=== PATIENT | female | born 1980 | race Caucasian/White ===

== ENCOUNTER 2016-11-13 11:27 | Emergency (ER) | payer OTHER ==
[~2016-11-13] VITALS: Ht 157.5 cm; Wt 84.1 kg
[~2016-11-13 11:27] MED LIST: ABIL10TA9 PO; ABIL1TAB11 PO; ABIL20TA5 PO; AMBI10TA PO; AMBI5TAB PO; ATIV1TAB7 PO; BACT800T5 PO; CIPR-249 PO; LAMI1TAB8 PO; LAMI25TA PO; METF500T13 PO; MIRA0.12 PO; NUVI250T5 PO; PERC5TAB12 PO; SERO1TAB3 PO; TRAZ50TA11 PO; ZOLO100T PO
[2016-11-13 11:28] VITALS: BP 152/103
--- NOTE | 2016-11-14 08:19 | ECGEPIP ---
Stationary ECG Study 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
== END 2016-11-13 13:05 | disposition home or self-care (01) ==
LOC: M ED 11:27
DX: R53.83 Other fatigue (principal); E11.9 Type 2 diabetes mellitus without complications; F41.9 Anxiety disorder, unspecified; G43.909 Migraine, unspecified, not intractable, without status migrainosus; Z87.442 Personal history of urinary calculi; F17.200 Nicotine dependence, unspecified, uncomplicated; Z79.899 Other long term (current) drug therapy; Z88.5 Allergy status to narcotic agent; Z88.0 Allergy status to penicillin; Z91.89 Other specified personal risk factors, not elsewhere classified

== ENCOUNTER → 2017-02-01 | Outpatient (CLI) | payer OTHER ==
--- NOTE | 2017-02-02 02:07 | REP ---
Clinical: Pain along the plantar surface and first metatarsal bone. Technique: AP, lateral, bilateral oblique views right foot . Findings: The osseous structures and joint spaces are intact and normal. There is no evidence for acute fracture or dislocation. Surrounding soft tissues are unremarkable. No subcutaneous emphysema or radiodense foreign body. Impression: Normal examination . No acute fracture or dislocation. Signed by Chucky Salcedo MD 02/01/2017 10:58 P
== END ==
LOC: M WUC 10:57
PROVIDERS: ATTEND Physician Assistant
DX: M79.671 Pain in right foot (principal)

== ENCOUNTER 2018-03-17 06:41 | Emergency (ER) | payer OTHER ==
[~2018-03-17] VITALS: Ht 152.4 cm; Wt 86.4 kg
[~2018-03-17 06:41] MED LIST changes: +TRAZ-160 PO; -TRAZ50TA11 PO
[2018-03-17] MEDS ORDERED: LITH300C PO (06:48)
[2018-03-17] MEDS ORDERED: CLON0.5T8 PO (06:48)
[2018-03-17] MEDS ORDERED: EXCETAB80 PO (06:48)
[2018-03-17] MEDS ORDERED: SERT-138 PO (06:50)
[2018-03-17] MEDS ORDERED: ZOLP6.25 PO (06:50)
[2018-03-17] MEDS ORDERED: LATU40TA PO (06:50)
[2018-03-17] MEDS ORDERED: BUSP10TA PO (06:50)
[2018-03-17] MEDS ORDERED: NS 1,000 ML IV ONE (07:15)
--- NOTE | 2018-03-17 07:24 | REPVR ---
EXAM: CT Head Without Contrast EXAM DATE/TIME: 03/17/2018 7:02 AM CLINICAL HISTORY: 37 years old, female; Pain; Headache; Migraine; Aura effect not specified; Additional info: Severe migraine; Feels different TECHNIQUE: Axial computed tomography images of the head/brain without contrast. All CT scans at this facility use at least one of these dose optimization techniques: automated exposure control; mA and/or kV adjustment per patient size (includes targeted exams where dose is matched to clinical indication); or iterative reconstruction. COMPARISON: No relevant prior studies available. FINDINGS: Brain: Normal. No hemorrhage. No significant white matter disease. No edema. Ventricles: Normal. No ventriculomegaly. Bones/joints: Unremarkable. No acute fracture. Sinuses: Visualized sinuses are unremarkable. No acute sinusitis. Mastoid air cells: Visualized mastoid air cells are unremarkable. No mastoid effusion. Soft tissues: Unremarkable. IMPRESSION: No acute intracranial abnormality. Electronically signed by: Jasen Chapman On 03/17/2018 07:24:34 AM
[2018-03-17] MEDS ORDERED: diphenhydrAMINE INJ 50MG/ML VIAL (J1200) IV STA (07:29)
[2018-03-17] MEDS ORDERED: ONDANSETRON 4MG/2ML VIAL (J2405) IV ONE (07:30)
[2018-03-17] MEDS ORDERED: KETOROLAC 30 MG/ML VIAL (J1885) IV ONE (07:30)
[2018-03-17] MEDS ORDERED: SUMA25TA3 PO (09:16)
[2018-03-17 09:34] VITALS: BP 112/70
== END 2018-03-17 09:36 | disposition home or self-care (01) ==
LOC: M ED 06:41
DX: G43.909 Migraine, unspecified, not intractable, without status migrainosus (principal); F31.9 Bipolar disorder, unspecified; F41.9 Anxiety disorder, unspecified; F43.10 Post-traumatic stress disorder, unspecified; Z79.899 Other long term (current) drug therapy; Z88.0 Allergy status to penicillin; Z88.5 Allergy status to narcotic agent; Z91.048 Other nonmedicinal substance allergy status
CPT/HCPCS: 70450; 96361; 96374; 96375; 99284; J1200; J1885; J2405

== ENCOUNTER → 2018-03-29 | Outpatient (REF) | payer OTHER ==
[~2018-03-29] MED LIST changes: +BUSP10TA PO; +CLON0.5T8 PO; +EXCETAB80 PO; +LATU40TA PO; +LITH300C PO; +SERT-138 PO; +SUMA25TA3 PO; +ZOLP6.25 PO
[2018-03-29 14:54] LABS: INFLUENZA A AMPLIFICATION NEGATIVE (NEGATIVE); INFLUENZA B AMPLIFICATION NEGATIVE (NEGATIVE)
== END ==
LOC: M LAB REF 13:59
PROVIDERS: ATTEND Physician Assistant Medical
DX: J11.1 Influenza due to unidentified influenza virus with other respiratory manifestations (principal)

== ENCOUNTER 2018-04-12 11:21 | Emergency (ER) | payer OTHER ==
[~2018-04-12] VITALS: Ht 154.9 cm; Wt 90.9 kg
--- NOTE | 2018-04-12 11:56 | REP ---
Clinical: Right shoulder pain. Technique: Internal rotation, external rotation, and Y view of the right shoulder. Findings: Mild cortical irregularity at the acromioclavicular joint noted. The glenohumeral joint is intact and normal. The subacromial space is normal. No periarticular calcifications or loose bodies are identified. The surrounding soft tissues are normal. 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 Electronically Signed by Chucky Salcedo MD 04/12/2018 11:47 A
[2018-04-12] MEDS ORDERED: PRED20TA PO (14:05)
[2018-04-12] MEDS ORDERED: ZITHTAB PO (14:05)
[2018-04-12] MEDS ORDERED: SKEL800T97 PO (14:05)
[2018-04-12 14:09] VITALS: BP 130/81
== END 2018-04-12 14:17 | disposition home or self-care (01) ==
LOC: M ED 11:21
DX: S46.811A Strain of other muscles, fascia and tendons at shoulder and upper arm level, right arm, initial encounter (principal); X50.3XXA Overexertion from repetitive movements, initial encounter; Y92.89 Other specified places as the place of occurrence of the external cause; H66.91 Otitis media, unspecified, right ear; G43.909 Migraine, unspecified, not intractable, without status migrainosus; F41.1 Generalized anxiety disorder; F43.10 Post-traumatic stress disorder, unspecified; F31.9 Bipolar disorder, unspecified; Z87.442 Personal history of urinary calculi; Z88.5 Allergy status to narcotic agent; Z88.0 Allergy status to penicillin; Z91.048 Other nonmedicinal substance allergy status; Z79.899 Other long term (current) drug therapy

== ENCOUNTER 2018-12-09 15:48 | Emergency (ER) | payer OTHER ==
[~2018-12-09] VITALS: Ht 154.9 cm; Wt 90.6 kg
[~2018-12-09 15:48] MED LIST changes: +PRED20TA PO; +SKEL800T97 PO; -TRAZ-160 PO; +TRAZ-252 PO; +ZITHTAB PO
[2018-12-09] MEDS ORDERED: PROV100T25 PO (16:43)
[2018-12-09] MEDS ORDERED: KETO10TAB PO (17:05)
[2018-12-09] MEDS ORDERED: KETOROLAC TROMETHAMINE 10 MG TAB PO ONE (17:15)
[2018-12-09 17:31] VITALS: BP 130/90
--- NOTE | 2018-12-09 20:31 | REP ---
HISTORY: Pain after trauma. COMPARISON: None. FINDINGS: The compartments are symmetric and relatively well maintained. There is no acute fracture or destructive osseous lesion. Electronically Signed by Roge Garcia DO 12/12/2018 02:51 P
== END 2018-12-09 17:48 | disposition home or self-care (01) ==
LOC: M ED 15:48
DX: S83.91XA Sprain of unspecified site of right knee, initial encounter (principal); W10.1XXA Fall (on)(from) sidewalk curb, initial encounter; Y92.480 Sidewalk as the place of occurrence of the external cause; Y99.8 Other external cause status; Z88.0 Allergy status to penicillin; Z88.5 Allergy status to narcotic agent; Z91.048 Other nonmedicinal substance allergy status; Z79.899 Other long term (current) drug therapy; G43.909 Migraine, unspecified, not intractable, without status migrainosus; K44.9 Diaphragmatic hernia without obstruction or gangrene; Z87.442 Personal history of urinary calculi; Z87.440 Personal history of urinary (tract) infections

== ENCOUNTER → 2020-07-12 | Outpatient (CLI) | payer OTHER ==
[~2020-07-12] MED LIST changes: +CLON0.5T2 PO; -CLON0.5T8 PO; +KETO10TAB PO; +PROV100T25 PO; -ZOLP6.25 PO; +ZOLP6.2517 PO
--- NOTE | 2020-07-12 10:00 | REP ---
INDICATION: DISORDERS OF TMJ. Bilateral TMJ area pain, right greater than left. COMPARISON: Comparison head CT images 15 February 2018.. TECHNIQUE: Axial, coronal, and sagittal imaging planes utilized. T1 and T2 weighted scans are included. Step wedge sin a opening views are acquired. Sagittal images are acquired in open and closed position. FINDINGS: Mandibular condyles and temporal fossa are unremarkable bilaterally. There is minimal joint fluid in the temporomandibular joint on the right. No large effusion is seen on either side. Opening translation is normal bilaterally. The TMJ meniscus appears normally situated at rest and with opening on both sides. No evidence of dislocation seen. IMPRESSION: Small amount of joint fluid visible right TMJ. No other temporomandibular joint abnormality noted. <Electronically signed by Hernán Gotti > 07/12/20 [id number]
== END ==
LOC: M RAD 07:41
PROVIDERS: ATTEND Otolaryngology
DX: M26.69 Other specified disorders of temporomandibular joint (principal); M25.48 Effusion, other site

== ENCOUNTER → 2020-08-23 | Outpatient (CLI) | payer OTHER ==
[~2020-08-23] MED LIST changes: -LATU40TA PO; +LATU40TA2 PO
[2020-08-23 11:40] LABS: BASO % 0.4 % (0.0-1.0); EOS # 0.2 10^3/uL (0.0-0.5); EOS % 1.8 % (0.0-3.0); HEMOGLOBIN 13.8 g/dl (12.0-15.5); LYMPH # 2.9 10^3/uL (1.5-5.0); LYMPH % 28.3 % (24.0-44.0); MEAN CORPUSCULAR HEMOGLOBIN 30.3 pg (27.0-33.0); MEAN CORPUSCULAR HGB CONC 32.1 g/dl (32.0-36.5); MEAN CORPUSCULAR VOLUME 94.3 fl (80.0-96.0); MONO # 0.5 10^3/uL (0.0-0.8); NEUTROPHILS # 6.5 10^3/uL (1.5-8.5); NEUTROPHILS % 64.3 % (36.0-66.0); PLATELET COUNT, AUTOMATED 377 10^3/uL (150-450); RED BLOOD COUNT 4.56 10^6/uL (4.00-5.40); WHITE BLOOD COUNT 10.1 10^3/uL (4.0-10.0)
[2020-08-23 12:37] LABS: ALT/SGPT 25 U/L (12-78); BILIRUBIN,TOTAL 0.4 MG/DL (0.2-1.0); BLOOD UREA NITROGEN 10 MG/DL (7-18); CALCIUM LEVEL 8.5 MG/DL (8.5-10.1); CARBON DIOXIDE LEVEL 27 MEQ/L (21-32); CHLORIDE LEVEL 107 MEQ/L (98-107); CHOLESTEROL LEVEL 194 MG/DL (<200); CHOLESTEROL RISK RATIO 2.852 (<5); CREATININE FOR GFR 0.63 MG/DL (0.55-1.30); FREE T4 0.68 NG/DL (0.76-1.46); GLOMERULAR FILTRATION RATE > 60.0 (>58); GLUCOSE, FASTING 108 MG/DL (70-100); HDL CHOLESTEROL 68 MG/DL (>40); LDL CHOLESTEROL 109 MG/DL (<100); LITHIUM LEVEL 0.51 MEQ/L (0.60-1.20); NON-HDL-C 126 MG/DL; POTASSIUM SERUM 4.6 MEQ/L (3.5-5.1); SODIUM LEVEL 138 MEQ/L (136-145); THYROID STIMULATING HORMONE 0.708 uIU/ML (0.358-3.740); TOTAL PROTEIN 7.6 GM/DL (6.4-8.2); TRIGLYCERIDES LEVEL 87 MG/DL (<150)
[2020-08-23 12:56] LABS: HEMOGLOBIN A1c 5.4 %
[2020-08-23 13:06] LABS: TOTAL 25(OH) VITAMIN D 20.6 NG/ML (30.0-100.0)
[2020-08-24 18:10] LABS: Lyme Disease IgG/IgM Antibodie <0.91 ISR (0.00-0.90); Lyme Disease IgM Ab Quantitati <0.80 index (0.00-0.79)
== END ==
LOC: M LAB 10:18
PROVIDERS: ATTEND Physician Assistant
DX: E66.9 Obesity, unspecified (principal)

== ENCOUNTER → 2020-09-06 | Outpatient (CLI) | payer OTHER ==
[~2020-09-06] MED LIST changes: +LATU40TA PO; -LATU40TA2 PO
--- NOTE | 2020-09-06 16:07 | REP ---
INDICATION: N64.4 MASTODYNIA. Patient reports bilateral palpable lumps. COMPARISON: Mammography no comparison breast imaging. TECHNIQUE: Bilateral CC and MLO) view(s) were taken. Skin markers are affixed to the skin at the sites of the palpable lumps bilaterally. Routine views are augmented by magnified focal spot-compression images bilaterally in the area the palpable lump. 3D tomography is performed. Implant included and implant displaced views are included. Targeted bilateral breast sonography is carried out. FINDINGS: Scattered fibroglandular elements are seen bilaterally. No suspicious or dominant density is seen. No microcalcification or architectural distortion is seen. No worrisome skin change is appreciated. Visualized implant margins are smooth bilaterally. 3-D tomosynthesis shows no additional finding. Targeted bilateral breast sonography scanning is performed in the area the palpable lumps, 12 o'clock in the right breast, 3 and 9 o'clock in the left breast. Mildly heterogeneous fibroglandular background echotexture is seen bilaterally. No cyst, mass, or acoustic shadowing is seen by ultrasound. IMPRESSION: BIRADS/ACR category 2 benign mammographic and sonographic findings.. This patient's Tyrer-Cuzick lifetime breast cancer risk assessment score is 18.3%. This mammogram was interpreted with the aid of an FDA-approved computer-aided detection system. The patient states she had a clinical breast exam in August of 2020. The patient letter being requested is M2. RECOMMENDATION: Repeat screening mammography recommended 1 year (for women over 40). Clinical follow-up. <Electronically signed by Hernán Gotti > 09/06/20 [id number]
== END ==
LOC: M WHC 14:18
PROVIDERS: ATTEND Physician Assistant
DX: N64.4 Mastodynia (principal); Z98.82 Breast implant status
CPT/HCPCS: 76642; 77066; G0279

== ENCOUNTER → 2020-12-03 | Outpatient (REF) | payer OTHER ==
[2020-12-03 22:20] LABS: GC DNA AMPLIFICATION NEGATIVE (NEGATIVE)
== END ==
LOC: M LAB REF 16:46
PROVIDERS: ATTEND Obstetrics & Gynecology
DX: Z11.3 Encounter for screening for infections with a predominantly sexual mode of transmission (principal)
CPT/HCPCS: 87491; 87591; G0463

== ENCOUNTER → 2020-12-24 | Outpatient (CLI) | payer OTHER ==
[2020-12-24 15:05] LABS: ESTRADIOL 79.8 PG/ML; FOLLICLE STIMULATING HORMONE 6.6 mIU/mL; HEPATITIS B SURFACE ANTIGEN NEGATIVE (NEGATIVE); HEPATITIS C VIRUS ABY INDEX 0.1 INDEX (<0.8); HIV 1&2 SCREEN CENTAUR NEGATIVE (NEGATIVE); LUTEINIZING HORMONE 4.4 mIU/mL
[2020-12-24 15:50] LABS: GC DNA AMPLIFICATION NEGATIVE (NEGATIVE)
[2020-12-25 12:08] LABS: TESTOSTERONE FREE (DIRECT) 1.7 pg/mL (0.0-4.2)
== END ==
LOC: M PLALAB 09:50
PROVIDERS: ATTEND Obstetrics & Gynecology
DX: N95.1 Menopausal and female climacteric states (principal); Z11.3 Encounter for screening for infections with a predominantly sexual mode of transmission

== ENCOUNTER → 2021-01-07 | Outpatient (CLI) | payer OTHER ==
[2021-01-07 18:13] LABS: C REACTIVE PROTEIN QUANTITATIV < 0.30 MG/DL (0.00-0.30); RHEUMATOID FACTOR QUANT < 10.0 IU/ML (<15.0); URIC ACID 4.1 MG/DL (2.6-6.0)
== END ==
LOC: M PLALAB 13:22
PROVIDERS: ATTEND Physician Assistant
DX: M25.50 Pain in unspecified joint (principal)

== ENCOUNTER → 2021-01-29 | Outpatient (REF) | payer OTHER | LOC: M SFHCWAGY 18:46 | PROVIDERS: ATTEND Obstetrics & Gynecology | DX: N90.7 Vulvar cyst (principal) ==

== ENCOUNTER → 2021-10-27 | Outpatient (CLI) | payer OTHER ==
[~2021-10-27] MED LIST changes: -LATU40TA PO; +LATU40TA2 PO
[2021-10-28 08:26] LABS: BASO % 0.2 % (0.0-1.0); EOS # 0.1 10^3/uL (0.0-0.5); HEMATOCRIT 39.9 % (36.0-47.0); HEMOGLOBIN 12.5 g/dl (12.0-15.5); LYMPH # 2.3 10^3/uL (1.5-5.0); LYMPH % 28.1 % (24.0-44.0); MEAN CORPUSCULAR HEMOGLOBIN 30.6 pg (27.0-33.0); MEAN CORPUSCULAR HGB CONC 31.3 g/dl (32.0-36.5); MEAN CORPUSCULAR VOLUME 97.8 fl (80.0-96.0); MONO # 0.4 10^3/uL (0.0-0.8); NEUTROPHILS # 5.4 10^3/uL (1.5-8.5); NEUTROPHILS % 65.3 % (36.0-66.0); PLATELET COUNT, AUTOMATED 375 10^3/uL (150-450); RED BLOOD COUNT 4.08 10^6/uL (4.00-5.40); WHITE BLOOD COUNT 8.3 10^3/uL (4.0-10.0)
[2021-10-28 08:41] LABS: ERYTHROCYTE SEDIMENTATION RATE 9 mm/hr (0-20)
[2021-10-28 09:00] LABS: ALBUMIN 3.9 GM/DL (3.2-5.2); ALT/SGPT 19 U/L (12-78); BILIRUBIN,TOTAL 0.3 MG/DL (0.2-1.0); BLOOD UREA NITROGEN 9 MG/DL (7-18); C REACTIVE PROTEIN QUANTITATIV 0.33 MG/DL (0.00-0.30); CALCIUM LEVEL 9.2 MG/DL (8.5-10.1); CARBON DIOXIDE LEVEL 25 MEQ/L (21-32); CHLORIDE LEVEL 106 MEQ/L (98-107); CREATININE FOR GFR 0.62 MG/DL (0.55-1.30); GLOMERULAR FILTRATION RATE > 60.0 (>58); GLUCOSE, FASTING 101 MG/DL (70-100); POTASSIUM SERUM 4.1 MEQ/L (3.5-5.1); SODIUM LEVEL 136 MEQ/L (136-145); TOTAL PROTEIN 7.2 GM/DL (6.4-8.2)
== END ==
LOC: M PLALAB 14:50
PROVIDERS: ATTEND Nurse Practitioner Adult Health
DX: R50.9 Fever, unspecified (principal)

== ENCOUNTER → 2021-11-03 | Outpatient (REF) | payer OTHER ==
[2021-11-03 14:00] LABS: APPEARANCE, URINE MANUAL HAZY (CLEAR); BILIRUBIN, URINE MANUAL NEGATIVE (NEGATIVE); COLOR, URINE MANUAL YELLOW (YELLOW); GLUCOSE, URINE (UA) MANUAL NEGATIVE (NEGATIVE); KETONE, URINE MANUAL NEGATIVE (NEGATIVE); PROTEIN, URINE MANUAL 1+ mg/dL (NEGATIVE); SPECIFIC GRAVITY,URINE MANUAL 1.023 (1.002-1.035); UROBILINOGEN, URINE MANUAL NORMAL (NORMAL)
[2021-11-03 14:01] LABS: BLOOD URINE MANUAL NEGATIVE (NEGATIVE); LEUKOCYTE ESTERASE, URINE MAN TRACE (NEGATIVE); NITRITE, URINE MANUAL NEGATIVE (NEGATIVE)
[2021-11-03 14:24] LABS: RBC, URINE 0-1 /hpf (0-3)
[2021-11-03 14:25] LABS: BACTERIA, URINE SMALL AMOUNT; HYALINE CAST, URINE NONE SEEN /lpf (0-1); SQUAMOUS EPITHELIAL CELL URINE MOD AMOUNT /hpf (SMALL AMT)
== END ==
LOC: M SMT 13:05
PROVIDERS: ATTEND Physician Assistant
DX: N12 Tubulo-interstitial nephritis, not specified as acute or chronic (principal)
CPT/HCPCS: 81000; 87086; G0463

== ENCOUNTER → 2021-11-06 | Outpatient (CLI) | payer OTHER | LOC: M WHC 12:39 | PROVIDERS: ATTEND Physician Assistant | DX: N12 Tubulo-interstitial nephritis, not specified as acute or chronic (principal); R93.89 Abnormal findings on diagnostic imaging of other specified body structures ==

== ENCOUNTER → 2021-12-01 | Outpatient (CLI) | payer OTHER ==
[2021-12-01 18:46] LABS: FREE T4 0.61 NG/DL (0.76-1.46); THYROID STIMULATING HORMONE 1.31 uIU/ML (0.358-3.740)
[2021-12-01 19:23] LABS: LUTEINIZING HORMONE 5.8 mIU/mL
[2021-12-01 19:24] LABS: FOLLICLE STIMULATING HORMONE 6.4 mIU/mL
== END ==
LOC: M PLALAB 13:58
PROVIDERS: ATTEND Nurse Practitioner Adult Health
DX: N89.8 Other specified noninflammatory disorders of vagina (principal)

== ENCOUNTER → 2021-12-25 | Outpatient (CLI) | payer OTHER | LOC: M PLARAD 12:27 | PROVIDERS: ATTEND Nurse Practitioner Adult Health | DX: R51.9 Headache, unspecified (principal) ==

== ENCOUNTER → 2022-09-14 | Outpatient (CLI) | payer OTHER ==
[2022-09-14 12:37] LABS: BASO % 0.4 % (0.0-1.0); EOS # 0.1 10^3/uL (0.0-0.5); EOS % 1.2 % (0.0-3.0); HEMATOCRIT 40.5 % (36.0-47.0); HEMOGLOBIN 13.2 g/dl (12.0-15.5); LYMPH # 2.3 10^3/uL (1.5-5.0); LYMPH % 29.6 % (24.0-44.0); MEAN CORPUSCULAR HEMOGLOBIN 30.6 pg (27.0-33.0); MEAN CORPUSCULAR HGB CONC 32.6 g/dl (32.0-36.5); MEAN CORPUSCULAR VOLUME 93.8 fl (80.0-96.0); MONO # 0.4 10^3/uL (0.0-0.8); MONO % 5.2 % (2.0-8.0); NEUTROPHILS # 4.9 10^3/uL (1.5-8.5); NEUTROPHILS % 63.3 % (36.0-66.0); PLATELET COUNT, AUTOMATED 406 10^3/uL (150-450); RED BLOOD COUNT 4.32 10^6/uL (4.00-5.40); WHITE BLOOD COUNT 7.7 10^3/uL (4.0-10.0)
[2022-09-14 12:58] LABS: ALKALINE PHOSPHATASE 72 U/L (46-116); ALT/SGPT 25 U/L (7.0-40); AST/SGOT 10 U/L (<34); BILIRUBIN,TOTAL 0.3 MG/DL (0.3-1.2); BLOOD UREA NITROGEN 8 MG/DL (9-23); CALCIUM LEVEL 9.2 MG/DL (8.5-10.1); CARBON DIOXIDE LEVEL 25 MMOL/L (20-31); CHLORIDE LEVEL 108 MMOL/L (98-107); CHOLESTEROL LEVEL 165 MG/DL (<200); CHOLESTEROL RISK RATIO 2.65 (<5); CREATININE FOR GFR 0.54 MG/DL (0.55-1.30); GLOMERULAR FILTRATION RATE > 60.0 (>58); GLUCOSE, FASTING 119 MG/DL (60-100); HDL CHOLESTEROL 62.2 MG/DL (>40); NON-HDL-C 102.8 MG/DL; POTASSIUM SERUM 4.6 MMOL/L (3.5-5.1); SODIUM LEVEL 141 MMOL/L (136-145); TOTAL PROTEIN 7.2 G/DL (5.7-8.2); TRIGLYCERIDES LEVEL 89 MG/DL (<150)
[2022-09-14 13:00] LABS: FREE T4 0.89 NG/DL (0.89-1.76); THYROID STIMULATING HORMONE 1.244 uIU/ML (0.55-4.78); TOTAL 25(OH) VITAMIN D 22.5 NG/ML (20.0-100.0)
== END ==
LOC: M LAB 11:02
PROVIDERS: ATTEND Family Medicine
DX: E55.9 Vitamin D deficiency, unspecified (principal); K21.9 Gastro-esophageal reflux disease without esophagitis; E66.01 Morbid (severe) obesity due to excess calories

== ENCOUNTER 2023-10-07 16:52 | Emergency (ER) | payer OTHER ==
[~2023-10-07] VITALS: Ht 154.9 cm; Wt 102.2 kg
[~2023-10-07 16:52] MED LIST changes: -ZOLP6.2517 PO; +ZOLP6.2526 PO
[2023-10-07 16:53] VITALS: TEMP 98
[2023-10-07] MEDS: CHLORTHALIDONE 25 MG TAB PO ONE (17:54)
[2023-10-07 18:25] LABS: BASO % 0.1 % (0.0-1.0); HEMATOCRIT 42.3 % (36.0-47.0); HEMOGLOBIN 14.1 g/dl (12.0-15.5); LYMPH # 2.6 10^3/uL (1.5-5.0); LYMPH % 12.5 % (24.0-44.0); MEAN CORPUSCULAR HEMOGLOBIN 30.9 pg (27.0-33.0); MEAN CORPUSCULAR HGB CONC 33.3 g/dl (32.0-36.5); MEAN CORPUSCULAR VOLUME 92.6 fl (80.0-96.0); MONO # 1.1 10^3/uL (0.0-0.8); MONO % 5.1 % (2.0-8.0); NEUTROPHILS # 17.2 10^3/uL (1.5-8.5); NEUTROPHILS % 81.7 % (36.0-66.0); PLATELET COUNT, AUTOMATED 460 10^3/uL (150-450); RED BLOOD COUNT 4.57 10^6/uL (4.00-5.40); WHITE BLOOD COUNT 21.1 10^3/uL (4.0-10.0)
[2023-10-07 18:50] LABS: OSMOLALITY SERUM 298 MOSM/KG (275-295)
[2023-10-07 18:56] LABS: HCG, SERUM QUALITATIVE NEGATIVE (NEGATIVE)
[2023-10-07 18:57] LABS: ALBUMIN 4.1 G/DL (3.2-5.2); ALKALINE PHOSPHATASE 81 U/L (46-116); ALT/SGPT 29 U/L (7.0-40); AST/SGOT 59 U/L (<34); BILIRUBIN,DIRECT < 0.1 MG/DL (<0.4); BILIRUBIN,TOTAL 0.4 MG/DL (0.3-1.2); BLOOD UREA NITROGEN 15 MG/DL (9-23); CALCIUM LEVEL 9.9 MG/DL (8.5-10.1); CARBON DIOXIDE LEVEL 22 MMOL/L (20-31); CHLORIDE LEVEL 107 MMOL/L (98-107); CREATININE FOR GFR 0.51 MG/DL (0.55-1.30); GLOMERULAR FILTRATION RATE > 60.0 (>58); GLUCOSE, FASTING 121 MG/DL (60-100); MAGNESIUM LEVEL 2.1 MG/DL (1.8-2.4); POTASSIUM SERUM 4.9 MMOL/L (3.5-5.1); SODIUM LEVEL 136 MMOL/L (136-145); TOTAL PROTEIN 7.9 G/DL (5.7-8.2)
[2023-10-07] MEDS ORDERED: CHLO125TA PO (18:57)
[2023-10-07 18:59] LABS: AMPHETAMINES LEVEL URINE NEGATIVE (NEGATIVE); BARBITURATES URINE NEGATIVE (NEGATIVE); BENZODIAZEPINES URINE NEGATIVE (NEGATIVE); CANNABINOIDS URINE NEGATIVE (NEGATIVE); COCAINE METABOLITE URINE NEGATIVE (NEGATIVE); METHADONE URINE NEGATIVE (NEGATIVE); OPIATES URINE NEGATIVE (NEGATIVE); PHENCYCLIDINE URINE NEGATIVE (NEGATIVE)
[2023-10-07 21:52] VITALS: O2SAT 98
[2023-10-07 22:00] VITALS: BP 157/96
[2023-10-07] MEDS ORDERED: NORV5TAB PO (22:12)
== END 2023-10-07 22:43 | disposition home or self-care (01) ==
LOC: M ED 16:52
DX: I10 Essential (primary) hypertension (principal); G43.909 Migraine, unspecified, not intractable, without status migrainosus; F31.9 Bipolar disorder, unspecified; G25.81 Restless legs syndrome; Z90.89 Acquired absence of other organs; Z88.0 Allergy status to penicillin; Z88.2 Allergy status to sulfonamides; Z88.5 Allergy status to narcotic agent; Z91.048 Other nonmedicinal substance allergy status; Z79.899 Other long term (current) drug therapy; Z79.1 Long term (current) use of non-steroidal anti-inflammatories (NSAID)

== ENCOUNTER → 2023-11-22 | Outpatient (REF) | payer OTHER ==
[~2023-11-22] MED LIST changes: +CHLO125TA PO; +NORV5TAB PO
== END ==
LOC: M LAB REF 17:06
PROVIDERS: ATTEND Family Medicine
DX: J02.9 Acute pharyngitis, unspecified (principal)

== ENCOUNTER 2024-10-21 11:56 | Emergency (ER) | payer OTHER ==
[~2024-10-21] VITALS: Ht 154.9 cm; Wt 98.8 kg
[~2024-10-21 11:56] MED LIST changes: -AMBI10TA PO; -AMBI5TAB PO; +ZOLP-532 PO; +ZOLP-533 PO
[2024-10-21 12:35] LABS: BASO # 0.0 10^3/uL (0.0-0.2); BASO % 0.3 % (0.0-1.0); EOS # 0.1 10^3/uL (0.0-0.5); EOS % 0.5 % (0.0-3.0); LYMPH # 3.1 10^3/uL (1.5-5.0); LYMPH % 27.4 % (24.0-44.0); MONO # 0.7 10^3/uL (0.0-0.8); MONO % 6.1 % (2.0-8.0); NEUTROPHILS # 7.3 10^3/uL (1.5-8.5); NEUTROPHILS % 65.3 % (36.0-66.0); PLATELET COUNT, AUTOMATED 422 10^3/uL (150-450)
[2024-10-21 12:53] LABS: INR 0.88
[2024-10-21 13:00] LABS: CK-MB VALUE MASS 2.1 NG/ML (<3.6)
[2024-10-21 13:02] LABS: ALT/SGPT 24 U/L (7.0-40); AST/SGOT 17 U/L (<34); CALCIUM LEVEL 9.5 MG/DL (8.5-10.1); CARBON DIOXIDE LEVEL 24 MMOL/L (20-31); CHLORIDE LEVEL 105 MMOL/L (98-107); CREATININE FOR GFR 0.62 MG/DL (0.55-1.30); GLOMERULAR FILTRATION RATE > 90.0 (>58); POTASSIUM SERUM 4.1 MMOL/L (3.5-5.1); SODIUM LEVEL 139 MMOL/L (136-145)
[2024-10-21 13:04] LABS: CPK CREATINE PHOSPHOKINASE 84 U/L (34-145); FREE T4 0.96 NG/DL (0.89-1.76); MB/CK RELATIVE INDEX 2.50 (< OR =4)
[2024-10-21] MEDS: amLODIPine 5 MG TAB PO ONE (13:24)
[2024-10-21] MEDS: hydroCHLOROthiazide 25 MG TAB PO ONE (13:24)
[2024-10-21 13:56] LABS: CK-MB VALUE MASS 2.0 NG/ML (<3.6)
[2024-10-21 13:57] LABS: LITHIUM LEVEL 0.31 MMOL/L (1.0-1.20)
[2024-10-21 14:00] LABS: CPK CREATINE PHOSPHOKINASE 73.0 U/L (34-145); MB/CK RELATIVE INDEX 2.73 (< OR =4)
[2024-10-21] MEDS ORDERED: ISOVUE-370 76% 100 ML VIAL As Ordered ONE (15:14)
[2024-10-21] MEDS ORDERED: VYVA70CA3 PO (15:23)
[2024-10-21] MEDS ORDERED: MODA200T15 PO (15:23)
[2024-10-21] MEDS ORDERED: ZOLP10TA2 PO (15:23)
[2024-10-21] MEDS ORDERED: BUSP15TA47 PO (15:23)
[2024-10-21] MEDS ORDERED: LAMO100T80 PO (15:23)
[2024-10-21] MEDS ORDERED: HOME MED LIST COMPLETE! XX SCH (15:25)
[2024-10-21 16:30] VITALS: BP 187/107
[2024-10-21] MEDS: FUROSEMIDE 40 MG/4 ML VIAL IV ONE (16:30)
[2024-10-21 17:00] VITALS: O2SAT 98
[2024-10-21] MEDS ORDERED: CHLO125TA PO (17:53)
[2024-10-21] MEDS ORDERED: LOSA100T46 PO (17:53)
[2024-10-21 17:57] VITALS: TEMP 98.5
[2024-10-21 18:12] VITALS: BP 173/102
== END 2024-10-21 18:12 | disposition home or self-care (01) ==
LOC: M ED 11:56
DX: I10 Essential (primary) hypertension (principal); F90.9 Attention-deficit hyperactivity disorder, unspecified type; F31.9 Bipolar disorder, unspecified; G43.909 Migraine, unspecified, not intractable, without status migrainosus; F10.10 Alcohol abuse, uncomplicated; F41.9 Anxiety disorder, unspecified; K21.9 Gastro-esophageal reflux disease without esophagitis; Z88.0 Allergy status to penicillin; Z88.2 Allergy status to sulfonamides; Z88.5 Allergy status to narcotic agent; Z91.048 Other nonmedicinal substance allergy status; Z87.891 Personal history of nicotine dependence; Z79.899 Other long term (current) drug therapy
CPT/HCPCS: 71045; 71275; 80048; 80076; 80178; 82550; 82553; 83690; 84439; 84443; 84484; 85025; 85610; 85730; 93005; 93041; 94760; 96374; 99285; J1938; Q9967

== ENCOUNTER 2024-12-26 12:18 | Emergency (ER) | payer OTHER ==
[~2024-12-26] VITALS: Ht 154.9 cm; Wt 97.3 kg
[~2024-12-26 12:18] MED LIST changes: +BUSP15TA47 PO; +LAMO100T80 PO; +LOSA100T46 PO; +MODA200T15 PO; +VYVA70CA3 PO; +ZOLP10TA11 PO
[2024-12-26 12:22] VITALS: TEMP 97.4
[2024-12-26 13:14] LABS: KETONE, URINE AUTO RFX NEGATIVE (NEGATIVE); LEUKOCYTE ESTERASE UR AUTO RFX NEGATIVE (NEGATIVE); NITRITE, URINE AUTO RFX NEGATIVE (NEGATIVE); RBC, URINE AUTO RFX 0 /HPF (0-3); SQUAM EPITHELIAL CELL UR AURFX 2 /HPF (0-6); WBC, URINE AUTO RFX 1 /HPF (0-3)
[2024-12-26 13:29] LABS: BASO # 0.0 10^3/uL (0.0-0.2); BASO % 0.4 % (0.0-1.0); EOS # 0.1 10^3/uL (0.0-0.5); EOS % 0.5 % (0.0-3.0); LYMPH # 2.7 10^3/uL (1.5-5.0); LYMPH % 26.3 % (24.0-44.0); MONO # 0.5 10^3/uL (0.0-0.8); MONO % 4.8 % (2.0-8.0); NEUTROPHILS # 7.0 10^3/uL (1.5-8.5); NEUTROPHILS % 67.6 % (36.0-66.0); PLATELET COUNT, AUTOMATED 413 10^3/uL (150-450)
[2024-12-26 14:25] LABS: CK-MB VALUE MASS < 1.0 NG/ML (<3.6)
[2024-12-26 14:26] LABS: CALCIUM LEVEL 8.7 MG/DL (8.5-10.1); CARBON DIOXIDE LEVEL 23 MMOL/L (20-31); CHLORIDE LEVEL 110 MMOL/L (98-107); CREATININE FOR GFR 0.52 MG/DL (0.55-1.30); GLOMERULAR FILTRATION RATE > 90.0 (>58); POTASSIUM SERUM 3.9 MMOL/L (3.5-5.1); SODIUM LEVEL 144 MMOL/L (136-145)
[2024-12-26 14:28] LABS: CPK CREATINE PHOSPHOKINASE 42 U/L (34-145)
[2024-12-26] MEDS ORDERED: ISOVUE-370 76% 100 ML VIAL As Ordered ONE (14:28)
[2024-12-26] MEDS: NITROGLYCERIN 0.4 MG SUBL TABLET SL PRN (15:14)
[2024-12-26] MEDS: ACETAMINOPHEN 500 MG TAB PO ONE (15:14)
[2024-12-26 15:45] VITALS: BP 172/86
[2024-12-26] MEDS: LOSARTAN 50 MG TABLET PO ONE (15:45)
[2024-12-26] MEDS ORDERED: LOSA100T46 PO (15:46)
[2024-12-26 15:53] LABS: CK-MB VALUE MASS < 1.0 NG/ML (<3.6)
[2024-12-26 15:54] LABS: CPK CREATINE PHOSPHOKINASE 46 U/L (34-145)
[2024-12-26 18:17] VITALS: BP 171/88; O2SAT 97
== END 2024-12-26 18:27 | disposition home or self-care (01) ==
LOC: M ED 12:18
DX: R07.9 Chest pain, unspecified (principal); I10 Essential (primary) hypertension; G43.909 Migraine, unspecified, not intractable, without status migrainosus; F31.9 Bipolar disorder, unspecified; F43.10 Post-traumatic stress disorder, unspecified; Z90.49 Acquired absence of other specified parts of digestive tract; Z88.0 Allergy status to penicillin; Z88.5 Allergy status to narcotic agent; Z88.2 Allergy status to sulfonamides; Z91.09 Other allergy status, other than to drugs and biological substances; Z87.442 Personal history of urinary calculi
CPT/HCPCS: 36415; 71045; 71275; 80048; 81001; 82550; 82553; 84484; 85025; 93005; 93041; 94760; 99285; Q9967

== ENCOUNTER → 2025-01-04 | Outpatient (REF) | payer OTHER | LOC: M LAB REF 17:38 | PROVIDERS: ATTEND Family Medicine | DX: R82.90 Unspecified abnormal findings in urine (principal) ==